=== PATIENT | female | born 1950 | race Caucasian/White ===

== ENCOUNTER → 2017-05-08 | Outpatient (REF) | payer BC | LOC: M LAB REF 12:21 | DX: D23.12 Other benign neoplasm of skin of left eyelid, including canthus (principal) | CPT/HCPCS: 88305 ==

== ENCOUNTER → 2018-07-15 | Outpatient (REF) | payer MEDICARE, BC | LOC: M SFHCWAGY 11:03 | PROVIDERS: ATTEND Nurse Practitioner Family | DX: Z12.4 Encounter for screening for malignant neoplasm of cervix (principal) | CPT/HCPCS: G0101; G0123 ==

== ENCOUNTER → 2019-11-09 | Outpatient (REF) | payer MEDICARE, BC ==
[~2019-11-09] MED LIST: ASPI81TA85 PO; CELE1CAP9 PO; FENO145T7 PO; LOSA50TA5 PO; METF-838 PO; OMEP-221 PO; ZOLP10TA2 PO
== END ==
LOC: M PLALAB 15:29
PROVIDERS: ATTEND Nurse Practitioner Family
DX: N83.8 Other noninflammatory disorders of ovary, fallopian tube and broad ligament (principal)

== ENCOUNTER → 2020-02-22 | Outpatient (CLI) | payer MEDICARE, BC ==
[~2020-02-22] MED LIST changes: -ASPI81TA85 PO; +ASPI81TA86 PO; +IBUP-1022 PO; +OXYC1TAB23 PO
== END ==
LOC: M LABSMTC 10:31
PROVIDERS: ATTEND Anesthesiology
DX: Z01.812 Encounter for preprocedural laboratory examination (principal); Z20.828 Contact with and (suspected) exposure to other viral communicable diseases
CPT/HCPCS: C9803; U0003

== ENCOUNTER 2020-02-27 11:56 | Day surgery (SDC) | payer MEDICARE, BC ==
[~2020-02-27] VITALS: Ht 160 cm; Wt 70.2 kg
[~2020-02-27 11:56] MED LIST changes: -IBUP-1022 PO; +LIDOCAINE 1% MDV 20ML VIAL SQ PRN; +LR 1,000 ML IV ONE; -OXYC1TAB23 PO
[2020-02-27 12:37] LABS: HEMATOCRIT 42.8 % (36.0-47.0); HEMOGLOBIN 13.2 g/dl (12.0-15.5); MEAN CORPUSCULAR HEMOGLOBIN 27.2 pg (27.0-33.0); MEAN CORPUSCULAR HGB CONC 30.8 g/dl (32.0-36.5); MEAN CORPUSCULAR VOLUME 88.1 fl (80.0-96.0); PLATELET COUNT, AUTOMATED 290 10^3/uL (150-450); RED BLOOD COUNT 4.86 10^6/uL (4.00-5.40); WHITE BLOOD COUNT 6.8 10^3/uL (4.0-10.0)
[2020-02-27] MEDS ORDERED: BUPIVACAINE HCL 0.25% 10ML VIAL As Ordered ONE (12:56)
--- NOTE | 2020-02-27 13:36 | ECGEPIP ---
[facility] Test Date: 2020-02-27 Pat Name: RONY DIAZ Department: Room: - Gender: Female [employer]: MIMI : 1950 Requested By: Bahman Perez Order Number: [id number] Reading MD: Gelacio Higgins Measurements Intervals [place] Rate: 53 P: 37 [place]: 147 QRS: 26 QRSD: 96 T: 58 QT: 414 QTc: 390 Interpretive Statements SINUS BRADYCARDIA MODERATE T-WAVE ABNORMALITY, CONSIDER ANTERIOR ISCHEMIA No prior ECG available for comparison at the time of interpretation. Electronically Signed on 02-27-2020 13:35:30 EDT by Gelacio Higgins
[2020-02-27] MEDS ORDERED: fentaNYL 100 MCG/2 ML INJECTION (J3010) As Ordered ONE (14:14)
[2020-02-27] MEDS ORDERED: dexameTHASONE 4 MG/ML 1ML VIAL (J1100 PER 1MG) As Ordered ONE (14:14)
[2020-02-27] MEDS ORDERED: KETOROLAC 60MG 2ML VIAL As Ordered ONE (14:14)
[2020-02-27] MEDS ORDERED: ONDANSETRON 4MG/2ML VIAL As Ordered ONE (14:14)
[2020-02-27] MEDS ORDERED: HYDROmorphone HCL 2 MG/ML 1ML VIAL (J1170) As Ordered ONE (14:14)
[2020-02-27] MEDS ORDERED: ROCURONIUM BROMIDE 50 MG/5 ML VIAL As Ordered ONE (14:14)
[2020-02-27] MEDS ORDERED: propofoL 200 MG/20 ML VIAL As Ordered ONE (14:14)
[2020-02-27] MEDS ORDERED: LIDOCAINE 2% 100MG/5ML SDV (FOR ANES.) As Ordered ONE (14:14)
[2020-02-27] MEDS ORDERED: MIDAZOLAM INJ 2MG/2ML VIAL (J2250 PER 1MG) As Ordered ONE (14:14)
[2020-02-27] MEDS ORDERED: ePHEDrine SULFATE 25 MG/5 ML(5MG/ML) SYRINGE As Ordered ONE (14:16)
[2020-02-27] MEDS ORDERED: IBUP-1022 PO (14:16)
[2020-02-27] MEDS ORDERED: OXYC1TAB23 PO (14:16)
[2020-02-27] MEDS ORDERED: ACETAMINOPHEN 1000MG 100ML IV BTL (OFIRMEV) (J0131 PER 10MG) As Ordered ONE (14:23)
[2020-02-27] MEDS ORDERED: SUGAMMADEX SODIUM 500 MG/5 ML VIAL (BRIDION) As Ordered ONE (14:34)
[2020-02-27] MEDS ORDERED: METOCLOPRAMIDE INJ 10MG/2ML VIAL (J2765 PER 1) As Ordered ONE (14:55)
[2020-02-27] MEDS ORDERED: ONDANSETRON 4MG/2ML VIAL IV PRN (15:45)
[2020-02-27] MEDS ORDERED: HYDROMORPHONE HCL 0.5 MG/ 0.5 ML SYRINGE (J1170 PER 1) IV PRN (15:45)
[2020-02-27] MEDS ORDERED: PERCOCET 5MG/325MG TAB PO PRN (15:45)
[2020-02-27] MEDS ORDERED: oxyCODONE 5MG TAB PO PRN (15:45)
[2020-02-27] MEDS ORDERED: LR 1,000 ML IV SCH ×2 (15:45)
[2020-02-27] MEDS ORDERED: fentaNYL 100 MCG/2 ML INJECTION (J3010) IV PRN (15:45)
[2020-02-27 16:50] VITALS: BP 132/60
--- NOTE | 2020-02-27 18:42 | ROOPDOC ---
[facility] Report Of Operation Report of Operation DATE OF PROCEDURE: 02/27/2020 PREPROCEDURE DIAGNOSES: left ovarian dermoid cyst. POSTPROCEDURE DIAGNOSES: same. PROCEDURE: Laparoscopic Left salpingo-oophorectomy SURGEON: Carolee Gaona MD ANESTHESIA: GETA. ESTIMATED BLOOD LOSS: Approximately 20 mL. COMPLICATIONS: None FINDINGS: 8-9 cm dermoid cyst completely involving the left ovary. Normal uterus. Normal right ovary and fallopian tube. Normal upper abdomen. Adhesions of omentum to the right pelvic sidewall PROCEDURE NOTE: The patient was taken to the operating room where general endotracheal anesthesia was induced. She was prepped and draped in sterile fashion in the dorsal lithotomy position. The bladder was emptied with a catheter. A sponge stick was placed in the vagina to use as manipulator. A periumbilical incision was made with a scalpel. A Veress needle was placed through this incision while tenting up on the skin of the abdomen. An intra- abdominal location of the Veress needle was assessed with use of a saline filled syringe. A pneumoperitoneum was created. An eleven millimeter trocar using Visiport was inserted through this incision. Two 5 mm suprapubic ports were placed under direct visualization. A grasping instrument was used to elevate the ovary on the left. A LigaSure device was used to coagulate and incise the IP ligament, as well as utero-ovarian ligament. Fallopian tube was transected near its origin.The Specimen was placed in an Endo Catch bag. Specimen was removed through the umbilicus port. Fascia of the umbilical port was closed with 0 Vicryl. Skin was closed with 4-0 Monocryl subcuticular sutures. All instruments were removed. Sponge, instrument and needle counts were correct. CAROLEE GAONA MD Feb 27, 2020 18:42
== END 2020-02-27 16:50 | disposition home or self-care (01) ==
LOC: M SDC 11:56
PROVIDERS: ATTEND Specialist
DX: N83.202 Unspecified ovarian cyst, left side (principal); E11.9 Type 2 diabetes mellitus without complications; I10 Essential (primary) hypertension; K21.9 Gastro-esophageal reflux disease without esophagitis; Z79.82 Long term (current) use of aspirin; Z79.899 Other long term (current) drug therapy; Z79.84 Long term (current) use of oral hypoglycemic drugs
CPT/HCPCS: 36415; 58661; 85027; 86850; 86900; 86901; 88305; 93005; J0131; J1100; J1170; J1885; J2250; J2405; J2765; J3010

== ENCOUNTER → 2022-08-26 | Outpatient (REF) | payer MEDICARE, BC ==
[~2022-08-26] MED LIST changes: +IBUP-1022 PO; -LIDOCAINE 1% MDV 20ML VIAL SQ PRN; -LR 1,000 ML IV ONE; -OMEP-221 PO; +OMEP40CA5 PO; +OXYC1TAB23 PO
== END ==
LOC: M SFHCDERM 17:27
PROVIDERS: ATTEND Nurse Practitioner Family
DX: D23.0 Other benign neoplasm of skin of lip (principal)